=== PATIENT | female | born 1995 ===

== ENCOUNTER 2017-05-25 15:49 | Emergency (ER) | payer OTHER ==
[2017-05-25 16:18] VITALS: BP 107/60; PULSE 86; RESP 18; TEMP 98.2; O2SAT 99
--- NOTE | 2017-05-25 17:03 | ED PDOC ---
HPI: Skin/Bite Injury Time Seen by Provider: 05/25/17 16:18 Chief Complaint (Nursing): Abnormal Skin Integrity Chief Complaint (Provider): Tender red area, right inner thigh x 1 month History Per: Patient History/Exam Limitations: no limitations Onset/Duration Of Symptoms: Days Current Symptoms Are (Timing): Still Present Location Of Injury: Right: Thigh Quality Of Symptoms: Painful, Swollen Severity: Moderate Additional Complaint(s): Pt states the area had been red for about a month but the last few days there is white head. No fever/chills. Past Medical History Reviewed: Historical Data, Nursing Documentation, Vital Signs Vital Signs: Last Vital Signs Temp 98.2 F 05/25/17 16:15 Pulse 86 05/25/17 16:15 Resp 18 05/25/17 16:15 BP 107/60 05/25/17 16:15 Pulse Ox 99 05/25/17 16:15 - Medical History PMH: Bipolar Disorder, Schizophrenia - Surgical History Surgical History: No Surg Hx - Family History Family History: States: No Known Family Hx - Living Arrangements Living Arrangements: With Family - Social History Current smoker - smoking cessation education provided: No Alcohol: None Drugs: Denies - Home Medications Home Medications: Ambulatory Orders Medication Instructions Recorded Clindamycin [Cleocin] 300 mg PO QID #40 cap 05/25/17 Ibuprofen [Motrin Tab] 800 mg PO Q6H PRN #20 tab 05/25/17 - Allergies Allergies/Adverse Reactions: Allergies Allergy/AdvReac Type Severity Reaction Status Date / Time No Known Allergies Allergy Verified 05/25/17 16:42 Review of Systems ROS Statement: Except As Marked, All Systems Reviewed And Found Negative Skin: Positive for: Rash Physical Exam - Reviewed Nursing Documentation Reviewed: Yes Vital Signs Reviewed: Yes - Physical Exam Appears: Positive for: Well, Non-toxic, No Acute Distress Head Exam: Positive for: ATRAUMATIC, NORMAL INSPECTION, NORMOCEPHALIC Skin: Positive for: Warm. Negative for: Normal Color ((+) area of erythema of the right inner thigh, approx 6 xm X 8 cm with warmth, (+) 2 cm fluctulant area with central puss filled vesicle. ) Eye Exam: Positive for: Normal appearance ENT: Positive for: Normal ENT Inspection Neck: Positive for: Normal, Painless ROM Cardiovascular/Chest: Positive for: Regular Rate, Rhythm Respiratory: Positive for: CNT, Normal Breath Sounds Back: Positive for: Normal Inspection Extremity: Positive for: Normal ROM Neurologic/Psych: Positive for: Alert, Oriented - ECG O2 Sat by Pulse Oximetry: 99 Medical Decision Making Medical Decision Making: Discussed PO trial and warm compresses vs. I and D today. PT prefers to begin antibiotics and do warm compresses at home for 3 days prior to I and D. Disposition - Clinical Impression Clinical Impression: Abscess - Patient ED Disposition Is Patient to be Admitted: No Counseled Patient/Family Regarding: Diagnosis, Need For Followup, Rx Given - Disposition [facility]errals: [facility] [Outside] Disposition: Routine/Home Disposition Time: 17:03 Condition: GOOD Prescriptions: Clindamycin [Cleocin] 300 mg PO QID #40 cap Ibuprofen [Motrin Tab] 800 mg PO Q6H PRN #20 tab PRN Reason: Pain Instructions: Abscess (ED)
[2017-05-25] MEDS ORDERED: Lidocaine 1% (10 ml) Inj INFIL STA (17:22)
[2017-05-25] MEDS ORDERED: Lidocaine 1% Inj (20ml) ONE (17:23)
[2017-05-25] MEDS ORDERED: Lidocaine 2% w Epi 1:100,000 Inj IJ ONE (17:25)
== END 2017-05-25 18:14 | disposition home or self-care (01) ==
LOC: H.ER 15:49
DX: L02.415 Cutaneous abscess of right lower limb (principal); F20.9 Schizophrenia, unspecified; F31.9 Bipolar disorder, unspecified

== ENCOUNTER 2017-05-27 14:12 | Emergency (ER) | payer OTHER ==
[2017-05-27 14:27] VITALS: BP 146/76; PULSE 68; RESP 18; TEMP 98; O2SAT 100
--- NOTE | 2017-05-27 14:48 | ED PDOC ---
HPI: Wound Care - HPI Time Seen by Provider: 05/27/17 14:22 Chief Complaint (Nursing): Wound Check Chief Complaint (Provider): Packing Removal History Per: Patient Exam Limitations: no limitations Additional Complaint(s): Kaylene Goldman, a 22 year old female, presents to the ED for a wound check. The patient states that 2 days ago she had an IND and is here today for a packing removal. She states that she has been using the antibiotics but has not been compliant with the warm compresses. The patient reports that she has noticed some improvement in pain. Past Medical History Reviewed: Historical Data, Nursing Documentation, Vital Signs Vital Signs: Last Vital Signs Temp 98 F 05/27/17 14:25 Pulse 68 05/27/17 14:25 Resp 18 05/27/17 14:25 BP 146/76 05/27/17 14:25 Pulse Ox 100 05/27/17 14:25 - Medical History PMH: Bipolar Disorder, Schizophrenia - Surgical History Surgical History: No Surg Hx - Family History Family History: States: Unknown Family Hx - Social History Current smoker - smoking cessation education provided: No Alcohol: None Drugs: Denies - Home Medications Home Medications: Ambulatory Orders Medication Instructions Recorded Clindamycin [Cleocin] 300 mg PO QID #40 cap 05/25/17 Ibuprofen [Motrin Tab] 800 mg PO Q6H PRN #20 tab 05/25/17 - Allergies Allergies/Adverse Reactions: Allergies Allergy/AdvReac Type Severity Reaction Status Date / Time No Known Allergies Allergy Verified 05/25/17 16:42 Review of Systems Constitutional: Positive for: Other (Improvement in pain at site of wound.). Negative for: Fever Physical Exam - Reviewed Nursing Documentation Reviewed: Yes Vital Signs Reviewed: Yes - Physical Exam Appears: Positive for: Non-toxic, No Acute Distress Head Exam: Positive for: ATRAUMATIC, NORMOCEPHALIC Skin: Positive for: Normal Color (Indurated edges at site of incision, site remained open, surroudning area of induration appro 2 cm, decreased surrounding erythema from previous visit), Warm, Dry Eye Exam: Positive for: Normal appearance ENT: Positive for: Normal ENT Inspection Respiratory: Negative for: Accessory Muscle Use, Respiratory Distress Extremity: Positive for: Normal ROM Neurologic/Psych: Positive for: Alert, Oriented, Gait - ECG O2 Sat by Pulse Oximetry: 100 (RA) Pulse Ox Interpretation: Normal Medical Decision Making Medical Decision Makin:22 Initial Impression: 22 year old female presenting for wound check Scribe Attestation Documented by Latisha Baird acting as a scribe for Joyce Ramesh PA-C. Scribe Attestation All medical record entries made by the Scribe were at my direction and personally dictated by me. I have reviewed the chart and agree that the record accurately reflects my personal performance of the history, physical exam, medical decision making, and the department course for this patient. I have also personally directed, reviewed, and agree with the discharge instructions and disposition. Disposition - Clinical Impression Clinical Impression: Encounter for wound re-check - Patient ED Disposition Is Patient to be Admitted: No Counseled Patient/Family Regarding: Studies Performed - Disposition Disposition: Routine/Home Disposition Time: 02:48 Condition: STABLE Additional Instructions: WARM COMPRESSES Continue antibiotics. Instructions: Chronic Wound Care (ED)
== END 2017-05-27 14:50 | disposition home or self-care (01) ==
LOC: H.ER 14:12
DX: Z48.00 Encounter for change or removal of nonsurgical wound dressing (principal); F20.9 Schizophrenia, unspecified; F31.9 Bipolar disorder, unspecified

== ENCOUNTER 2018-12-25 21:24 | Emergency (ER) | payer OTHER ==
[2018-12-25 21:51] VITALS: BP 118/79; PULSE 97; RESP 16; TEMP 99.1; O2SAT 100
[2018-12-25] MEDS ORDERED: Oxycodone/Acetaminophen 5/325 mg Tab PO ONE (22:13)
[2018-12-25] MEDS ORDERED: Lidocaine 1% Inj (20ml) IJ STA (22:14)
--- NOTE | 2018-12-25 22:16 | ED PDOC ---
Lower Extremity Pain/Injury Time Seen by Provider: 12/25/18 22:02 Chief Complaint (Nursing): Lower Extremity Problem/Injury Chief Complaint (Provider): left groin pain History Per: Patient History/Exam Limitations: no limitations Onset/Duration Of Symptoms: Days (1 week) Current Symptoms Are (Timing): Still Present Additional Complaint(s): 23 y/o female presents for evaluation of left groin pain/swelling x 1 week, worse today. PAtient admits to similar symptoms in past in which she had an absces that required drainage. Denies fever, nausea/vomiting, numbness/weakness left lower extremity. Patient has been applying warm compresses without improvement. Past Medical History Reviewed: Historical Data, Nursing Documentation, Vital Signs Vital Signs: Last Vital Signs Temp 99.1 F 12/25/18 21:50 Pulse 97 H 12/25/18 21:50 Resp 16 12/25/18 21:50 BP 118/79 12/25/18 21:50 Pulse Ox 100 12/25/18 21:50 - Medical History PMH: Bipolar Disorder, Schizophrenia - Surgical History Surgical History: No Surg Hx - Family History Family History: States: Unknown Family Hx - Home Medications Home Medications: Ambulatory Orders Medication Instructions Recorded Clindamycin [Cleocin] 300 mg PO QID #40 cap 05/25/17 Ibuprofen [Motrin Tab] 800 mg PO Q6H PRN #20 tab 05/25/17 Clindamycin [Cleocin] 300 mg PO QID #27 cap 12/26/18 Ibuprofen [Motrin Tab] 1 tab PO Q6 PRN #20 tab 12/26/18 - Allergies Allergies/Adverse Reactions: Allergies Allergy/AdvReac Type Severity Reaction Status Date / Time No Known Allergies Allergy Verified 12/25/18 22:55 Review of Systems ROS Statement: Except As Marked, All Systems Reviewed And Found Negative Musculoskeletal: Positive for: Leg Pain Physical Exam - Reviewed Nursing Documentation Reviewed: Yes Vital Signs Reviewed: Yes - Physical Exam Appears: Positive for: Well, Non-toxic, No Acute Distress Extremity: Positive for: Normal ROM, Other ([id number] left groin abscess with central fluctuance. Mild surrounding erythema. FROM) Neurologic/Psych: Positive for: Alert, Oriented (x3) - ECG O2 Sat by Pulse Oximetry: 100 - Progress ED Course And Treament: -percocet PO Verbal consent given by patient for I&D area cleaned with alcohol prep pad. Area anesthesitized with 1% lidocaine. Incision made using #11 blade with + purulent drainage; packing inserting, bandage applied Patient educated on findings, discharged with rx Clindamycin (dose given in ED), Ibuprofen Advised warm compresses, wound check in 48 hours Return precautions given Disposition - Clinical Impression Clinical Impression: Abscess of left groin - Patient ED Disposition Is Patient to be Admitted: No Counseled Patient/Family Regarding: Diagnosis, Need For Followup, Rx Given - Disposition Disposition: Routine/Home Disposition Time: 00:03 Condition: IMPROVED Prescriptions: Clindamycin [Cleocin] 300 mg PO QID #27 cap Ibuprofen [Motrin Tab] 1 tab PO Q6 PRN #20 tab PRN Reason: Pain, Moderate (4-7) Instructions: Skin Abscess, Abscess Incision and Drainage Forms: [facility] ([place]ian), [facility] ED School/Work Excuse
== END 2018-12-26 00:22 | disposition home or self-care (01) ==
LOC: H.ER 21:24
DX: L02.214 Cutaneous abscess of groin (principal); F20.9 Schizophrenia, unspecified; F31.9 Bipolar disorder, unspecified

== ENCOUNTER 2018-12-27 20:02 | Emergency (ER) | payer OTHER ==
[2018-12-27 22:28] VITALS: BP 109/64; PULSE 88; RESP 16; TEMP 98.2; O2SAT 100
== END 2018-12-28 01:07 | disposition left against medical advice (07) ==
LOC: H.ER 20:02
DX: Z02.89 Encounter for other administrative examinations (principal)